=== PATIENT | male | born 1940 | race Caucasian/White ===

== ENCOUNTER 2016-04-21 13:06 | Emergency (ER) | payer OTHER, MEDICARE ==
[~2016-04-21] VITALS: Ht 177.8 cm; Wt 77.1 kg
--- NOTE | ~2016-04-21 | EKG ---
[address] [place] [address] ELECTROCARDIOGRAM REPORT Name: WINDY LIGHT Room #: [facility]#: [id number] Admission: 04/21/16 Attend Phys: Discharge: Date of : 40 Report #: [id number] THIS REPORT FOR: //name// [facility] ED Test Date: 2016-04-21 Test Time: 13:50:26 Pat Name: WINDY LIGHT Department: Room: Gender: Pad Cutter: EVE : 1940 Requested By: Garland Owens Order Number: [id number] MD: Craig Norris Measurements Intervals [place] Rate: 63 P: 83 DC: 146 QRS: 77 QRSD: 93 T: 77 QT: 386 QTc: 396 Interpretive Statements Sinus rhythm No significant abnormality No previous ECG available for comparison Electronically Signed On 04-21-2016 13:57:55 DRAWING INSTRUCTOR by Craig Norris [email or web address] <ELECTRONICALLY SIGNED> By: Craig Norris MD, [facility] 04/21/16 1357 1350 1350 Craig Norris MD, FACC /EPI
--- NOTE | ~2016-04-21 | HC ---
[facility] [place] [address] CONSULTATION Name: WINDY LIGHT Room #: DEP Елена#: [id number] Admission: 04/21/16 Attend Phys: Discharge: 04/21/16 Date of : 40 Report #: [id number] THIS REPORT FOR: //name// CC: Garland Ford MD DATE OF SERVICE: 04/21/2016 REFERRING PHYSICIAN: Dr. Wojciech Cage. REASON FOR REFERRAL: Dyspnea. HISTORY OF PRESENT ILLNESS: The patient is a 76-year-old white male who presents to the Emergency Room with progressive dyspnea and cough. A pulmonary consultation was requested. The patient has smoked most of his life. He has smoked about a pack a day. He has smoked up till two days ago. The patient has noticed increasing dyspnea on exertion for the past several years, much worse more recently. For about 1-2 weeks, he has had trouble with night sweats and chills, and dyspnea. On Saturday, his cough and dyspnea became progressively worse where he was seen in the Emergency Room. He is in fact seen in the Urgent Care who referred him to the Emergency Room. It was recommended that he would be hospitalized, the patient deferred and was dismissed home with antibiotics and corticosteroids along with bronchodilators. He returns today because of worsening dyspnea and cough. The patient had a CT chest performed earlier, which was without any infiltrates. There is some suggestion of bilateral bullous changes. Aside from his dyspnea and cough, he denies any chest pain or productive cough. He has had fever and chills. The patient denies any past pulmonary evaluation, though it was recommended to him in the past and the patient deferred. PAST MEDICAL HISTORY: Remarkable for coronary artery disease, undergoing stent placement in the past, hypertension, hypocholesterolemia, intolerance to Lipitor, Pravachol, Zocor, Livalo, tobacco abuse up until 2 days ago, smoking about a pack a day for most of his life PAST SURGICAL HISTORY: Includes prior back surgery, double herniorrhaphy, appendectomy, carpal tunnel disease, shoulder surgery. [facility] [address] [place] [address] CONSULTATION Name: WINDY LIGHT KB Room #: DEP Елена#: [id number] Admission: 04/21/16 Attend Phys: Discharge: 04/21/16 Date of : 40 Report #: [id number] ALLERGIES: Aleve which causes panic attacks, but he tolerates aspirin, Lipitor, Pravachol, simvastatin, all causes myalgias including Livalo. HOME MEDICATIONS: Include metoprolol, doxazosin, vitamin D3, multivitamins, aspirin 325 mg. He has been using ProAir 2 puffs p.r.n., which helps. FAMILY HISTORY: Notable for myocardial infarction in father who at the age of 58. He has 2 children, one son with coronary artery disease at the age of 49. SOCIAL HISTORY: The patient is . 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 REVIEW OF SYSTEMS: As mentioned above. It is notable for progressive dyspnea on exertion for past several years. Otherwise, 10-point system review negative. PHYSICAL EXAMINATION: GENERAL: He is awake, alert, in mild respiratory distress. VITAL SIGNS: Temperature is 98 degrees Fahrenheit, pulse is 98, respiratory rate is 18, blood pressure is 152/72 mmHg, saturation is 95% on 3 liters of O2. HEENT: Normocephalic, atraumatic. NECK: Supple, without lymphadenopathy or thyromegaly. CHEST: Breath sounds are good bilaterally with mild expiratory wheezes. No rales. CARDIOVASCULAR: Normal S1, S2. There are no murmurs or gallop. There is no JVD. There is no carotid bruit. Pulses are 2+/4+ bilaterally. ABDOMEN: Soft, nontender, no organomegaly or masses felt. EXTREMITIES: There is no edema, cyanosis or clubbing. LABORATORY DATA: CT chest again is clear. Electrolytes are normal, creatinine 1.1. WBC 6400, hemoglobin 13.7, platelets normal. There is no left shift. Arterial blood gas revealed pH 7.44, pCO2 of 30, pO2 87 on 5 liters O2. IMPRESSION: 1. Acute hypoxic respiratory failure in this 76-year-old white male secondary to exacerbation of COPD along with possible upper respiratory tract infection. 2. COPD, severity unknown, but suspect moderate to severe impairment with exacerbation. 3. Tobacco abuse, having quit smoking just 2 days ago. 4. Suspect upper respiratory tract infection, possible viral, bacterial is felt to be less likely given the absence of productive cough. 5. Coronary artery disease. 6. Hypertension. RECOMMENDATIONS: Agree with current medical treatment plans including [facility] [address] [place] [address] CONSULTATION Name: WINDY LIGHT Room #: PRESLEY Christiansen#: [id number] Admission: 04/21/16 Attend Phys: Discharge: 04/21/16 Date of : 40 Report #: [id number] corticosteroids, bronchodilators and broad spectrum antibiotics. DVT and GI prophylaxis will be addressed. The patient will benefit from maintenance bronchodilator therapy. Either Spiriva or combination of anticholinergic along beta agonist will be preferred. In terms of tobacco use, I had a long discussion with the patient regarding the importance of smoke cessation. We also discussed there are treatment options for tobacco cessation including nicotine replacement products. Once stable and improved, the patient will benefit from outpatient followup with pulmonary functions. Thank you for the consultation. <ELECTRONICALLY SIGNED> By: Ravindra Tatum MD 04/25/16 1518 1718 2225 Ravindra Tatum MD /nt
[~2016-04-21 13:06] MED LIST: ARTIFICIAL TEAR15 M1 OPHTHALMIC; ASPIRIN325 PO; ATORVASTATIN CA20 MG PO; B-121000 MCG PO; CARDURA4 MG PO; CELEBREX 200 M200 M1 PO; CENTRUM SILVER1 EAC4 PO; CEPHALEXIN 500500 M2 PO; EFFIENT10 MG PO; IBUPROFEN 200200 M1 PO; MULTIVITAMINS1 EAC7; TOPROL XL50 MG PO; VITAMIN D31000 UNI2 PO; ZANAFLEX4 MG PO
[2016-04-21 14:03] LABS: ABSOLUTE NEUTROPHILS 2.8 thou/uL (1.4-8.2); PLATELET COUNT 157 thou/uL (150-400)
[2016-04-21 14:09] LABS: BASOPHILS 0.2 % (0.0-2.0); HEMATOCRIT 40.4 % (42.0-52.0); HEMOGLOBIN 13.7 gm/dL (14.0-18.0); LYMPHOCYTES 13.7 % (24.0-44.0); MCH 30.8 pg (26.0-34.0); MCV 90.5 fL (80.0-100.0); POLYS 74.1 % (36.0-66.0); RBC 4.46 mil/uL (4.50-6.00); RDW 13.9 % (10.5-14.5); WBC 3.7 thou/uL (4.0-11.0)
[2016-04-21 14:10] LABS: ANION GAP 9 mmol/L (7-16); BUN 21 mg/dL (7-18); CHLORIDE 101 mmol/L (98-107); CO2 27 mmol/L (21-32); CREATININE 1.4 mg/dL (0.6-1.3); GLUCOSE 112 mg/dL (70-99); POTASSIUM 4.3 mmol/L (3.5-5.1); SODIUM 137 mmol/L (136-145)
[2016-04-21 14:17] LABS: MANUAL DIFF NO
[2016-04-21 14:18] LABS: ALBUMIN 3.3 g/dL (3.4-5.0); ALKALINE PHOSPHATASE 42 U/L (46-116); SGOT 28 U/L (15-37); SGPT 31 U/L (30-65); TOTAL BILIRUBIN 0.3 mg/dL (<0.1-1.0); TOTAL PROTEIN 7.1 g/dL (6.4-8.2); TROPONIN-I < 0.04 ng/mL (<0.04-0.07)
[2016-04-21 14:53] LABS: URINE BILIRUBIN NEGATIVE (Negative); URINE BLOOD TRACE (Negative); URINE COLOR YELLOW; URINE GLUCOSE-RANDOM* NEGATIVE (Negative); URINE KETONES NEGATIVE (Negative); URINE NITRITE NEGATIVE (Negative); URINE PROTEIN (DIPSTICK) NEGATIVE (Negative); URINE UROBILINOGEN 0.2 E.U./dl (0.2-1.0)
[2016-04-21] MEDS ORDERED: VENTOLIN HFA 1818 GM INH (15:07)
[2016-04-21] MEDS ORDERED: PREDNISONE 20 M20 MG PO (15:07)
[2016-04-21] MEDS ORDERED: LEVAQUIN 500 M500 M2 PO (15:07)
[2016-04-23] MEDS ORDERED: ASPIRIN325 PO (12:02)
[2016-04-26] MEDS ORDERED: LORAZEPAM 0.50.5 MG PO (17:05)
[2016-04-26] MEDS ORDERED: NICOTINE TRANSD14 M1 TRANSDERM (17:05)
[2016-04-26] MEDS ORDERED: MUCINEX TA600 MG/TA2 PO (17:05)
[2016-04-26] MEDS ORDERED: DUONEB 2.5-0.5 M3 ML INH (17:05)
[2016-04-26] MEDS ORDERED: NEBULIZER INH (17:10)
== END 2016-04-21 15:53 | disposition home or self-care (01) ==
LOC: ER 13:06
PROVIDERS: Physician Assistant
DX: J44.1 Chronic obstructive pulmonary disease with (acute) exacerbation (principal); J20.9 Acute bronchitis, unspecified; Z71.6 Tobacco abuse counseling; F17.210 Nicotine dependence, cigarettes, uncomplicated; I10 Essential (primary) hypertension; Z98.890 Other specified postprocedural states; Z88.6 Allergy status to analgesic agent; F10.99 Alcohol use, unspecified with unspecified alcohol-induced disorder

== ENCOUNTER → 2017-07-08 | Outpatient (CLI) | payer OTHER, MEDICARE ==
[~2017-07-08] MED LIST changes: +DUONEB 2.5-0.5 M3 ML INH; +LEVAQUIN 500 M500 M2 PO; +LORAZEPAM 0.50.5 MG PO; +MUCINEX TA600 MG/TA2 PO; +NEBULIZER INH; +NICOTINE TRANSD14 M1 TRANSDERM; +PREDNISONE 20 M20 MG PO; +VENTOLIN HFA 1818 GM INH
== END ==
LOC: NUC 07:27
DX: I25.10 Atherosclerotic heart disease of native coronary artery without angina pectoris (principal); I10 Essential (primary) hypertension; E78.5 Hyperlipidemia, unspecified; Z87.891 Personal history of nicotine dependence

== ENCOUNTER 2017-07-22 06:32 | Outpatient (CLI) | payer OTHER, MEDICARE ==
[~2017-07-22] VITALS: Ht 177.8 cm; Wt 70.8 kg
--- NOTE | ~2017-07-22 | D ---
[facility] [place] [address] DISCHARGE SUMMARY Name: WINDY LIGHT Room #: DEP MICHAELA Елена#: [id number] Admission: 07/22/17 Attend Phys: Scottie Greene MD Discharge: 07/23/17 Date of : 40 Report #: [id number] THIS REPORT FOR: //name// CC: Scottie Cage DATE OF SERVICE: 07/23/2017 FINAL DIAGNOSES: 1. Unstable angina, status post coronary angioplasty. 2. Prior history of coronary artery disease. 3. Chronic obstructive pulmonary disease. 4. Tobacco use. 5. Hypertension. 6. Hypercholesterolemia. HOSPITAL COURSE: Please see the original H and P for full details. The patient had increasing dyspnea with mild levels of physical exertion. He also had occasional episodes of chest discomfort. The nuclear stress test was positive for ischemia. Please see the cardiac cath report for full details. The previously placed stents in the LAD and diagonal artery were widely patent. There was a new stenosis involving a moderate size first obtuse marginal artery. Angioplasty was performed with placement of a drug-eluting stent. He has remained clinically stable overnight. FINAL DISPOSITION: Plavix 75 mg daily, Lipitor 40 mg daily, doxazosin, metoprolol XL 50 mg daily, albuterol inhaler, aspirin, and vitamins. <ELECTRONICALLY SIGNED> By: Scottie Greene MD 07/24/17 0826 0850 1013 Scottie Greene MD /eduardo
--- NOTE | ~2017-07-22 | EKG ---
[address] [address] ELECTROCARDIOGRAM REPORT Name: SARA LIGHTMAUREEN Clayton Room #: 211-[facility]#: [id number] Admission: 07/22/17 Attend Phys: Scottie Greene MD Discharge: Date of : 40 Report #: [id number] THIS REPORT FOR: //name// [facility] Test Date: 2017-07-23 Test Time: 06:08:53 Pat Name: WINDY LIGHT Department: Room: 211 Gender: M Lan Manager: : 1940 Requested By: Scottie Greene Order Number: [id number] MD: Craig Norris Measurements Intervals [place] Rate: 69 P: 79 [place]: 163 QRS: 57 QRSD: 91 T: 72 QT: 367 QTc: 393 Interpretive Statements Sinus rhythm Anteroseptal infarct, age indeterminate Compared to ECG 07/22/2017 07:03:59 Septal Q waves are more prominent Electronically Signed On 07-23-2017 9:01:51 CDT by Craig Norris [email or web address] <ELECTRONICALLY SIGNED> By: Craig Norris MD, [facility] 05/04/11 [phone] 7 Craig Norris MD, [facility] /EPI
--- NOTE | ~2017-07-22 | EKG ---
[address] [address] ELECTROCARDIOGRAM REPORT Name: SARA LIGHTMAUREEN Clayton Room #: 211-P [facility]#: [id number] Admission: 07/22/17 Attend Phys: Scottie Greene MD Discharge: Date of : 40 Report #: [id number] THIS REPORT FOR: //name// [facility] Test Date: 2017-07-22 Test Time: 10:00:49 Pat Name: WINDY LIGHT Department: Room: Gender: M Fish And Game Warden: Bridgett BLAIR : 1940 Requested By: Scottie Greene Order Number: [id number] MD: Craig Norris Measurements Intervals [place] Rate: 60 P: 79 SD: 170 QRS: 66 QRSD: 94 T: 73 QT: 410 QTc: 410 Interpretive Statements Sinus rhythm Normal tracing Compared to ECG 07/22/2017 07:03:59 No significant changes Electronically Signed On 07-23-2017 8:46:44 CDT by Craig Norris [email or web address] <ELECTRONICALLY SIGNED> By: Craig Norrsi MD, [facility] 07/23/17 [address] [facility] Craig Norris MD, FACC /EPI
--- NOTE | ~2017-07-22 | CATHLAB ---
[address] [address] [place] [address] INVASIVE PROCEDURE REPORT Name: WINDY LIGHT Room #: 211-P [facility]#: [id number] Admission: 07/22/17 Attend Phys: Scottie Greene MD Discharge: Date of : 40 Date of Service: 07/22/17 1452 Report #: [id number] THIS REPORT FOR: //name// APPROVED REPORT Study performed: 07/22/2017 07:46:42 Patient Details Patient Status: Out-Patient Room #: The patient is a 77 year-old male Event Personnel Scottie Greene Director Biomedical Engineering, Andrew Salazar RN, Santos, Yobani Reyes David Monitor Procedures Performed Left Heart Cath w/or w/o Coronaries [id number] [facility] INDER Place w/wo Plasty Single CIRC [id number] Indication Dyspnea, Positive stress test, Chest pain Risk Factors Chronic Lung DiseaseHypercholesterolemia, Coronary Artery DiseaseHypertension, Tobacco History () Procedure Narrative The Right Groin^ was infiltrated with 1% Lidocaine subcutaneous anesthesia. A PINNACLE 6FR Sheath #[id number] sheath was inserted into the RFA^. Coronary angiography was performed using coronary diagnostic catheters. The right coronary system was accessed and visualized with a 4FR AR MOD #[id number] catheter. The left coronary system was accessed and visualized with a JL4 catheter. The left ventricle was accessed and visualized with a PIGTAIL catheter. Left ventricular/Aortic Valve gradient assessed via catheter pullback. Left ventriculogram was performed in 30 degree projection. Closure device was deployed with a 6 Fr MYNXGRIP 6/7F #[id number]. The patient tolerated the procedure well and there were no complications associated with the procedure. Intraoperative Conscious Sedation Sedation start time: 8.26 Case end Time: 9.10 Fentanyl 50 mcg Versed 1.5 mg [facility] [place] [address] INVASIVE PROCEDURE REPORT Name: WINDY LIGHT Room #: 211-P [facility]#: [id number] Admission: 07/22/17 Attend Phys: Scottei Greene MD Discharge: Date of : 40 Date of Service: 07/22/17 1452 Report #: [id number] Fluoro Time: 14.13 minutes Dose: DAP 8567 cGycm2 1091 mGy Contrast Type and Amount: Omnipaque 245 ml Coronary Angiography The patient's coronary anatomy is right dominant. Diagnostic Cath Left Main Patent vessel, with no flow-limiting lesions. LAD There is a patent stent in the mid LAD, with minimal restenosis. After the stent, there is a mild to moderate stenosis, 40%. Diagonal 1 There is a stent in the proximal segment, patent with minimal restenosis. Circumflex Supplies one moderate size OM vessel. OM1 There is a severe stenosis in the proximal segment, 80%. Right Coronary Dominant vessel, with no flow-limiting lesions. 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 R PDA Patent vessel, with no flow-limiting lesions. RPLV There are 3 branches, patent with no flow-limiting lesions. Left Ventriculography The left ventricle is normal in size with normal contractility. The left ventricular ejection fraction is estimated to be 55-60%. Hemodynamics The aortic pressure is 135/74 mmHg with a mean of 91 mmHg. The left ventricular pressure is 131/5 mmHg with a mean of mmHg. The left ventricular end diastolic pressure is 19 mmHg. There was no gradient across the aortic valve upon pullback. Pullback from the left ventricle to the aorta revealed no gradient across the aortic valve. PCI Technique Lesion Anticoagulation was achieved with Angiomax. Patient was preloaded with Plavix. Percutaneous coronary intervention was performed on the proximal obtuse marginal artery #1. The lesion stenosis prior to intervention was 80% with RA 3 flow. A XB3.5 Guide Catheter was used to engage the ostium. A Luge Wire .014 x 182CM #[id number] Interventional Guidewire was used to cross the lesion. BALLOON DILATION A Balloon catheter Euphora RX 2.25 x 6 #[id number] was inserted and inflated up to 6.00atm for 9seconds. Additional Inflation: 8.00atm for 15seconds. Additional Inflation: 8.00atm for 14seconds. [facility] [address] [place] [address] INVASIVE PROCEDURE REPORT Name: WINDY LIGHT Room #: 211-P [facility]#: [id number] Admission: 07/22/17 Attend Phys: Scottie Greene MD Discharge: Date of : 40 Date of Service: 07/22/17 1452 Report #: [id number] STENT DEPLOYMENT A drug-eluting stent RESOLUTE RX 2.5 X 12 #[id number] was inserted and inflated up to 9atm for 21seconds. POST STENT DEPLOYMENT BALLOON DILATION A Balloon catheter Euphora NC RX 2.75 x 8 #[id number] was inserted and inflated up to 15.00atm for 12seconds. Final angiography reveals 0 % stenosis with RA 3 flow. Conclusion 1. Successful insertion of a drug-eluting stent into the severe proximal stenosis in OM1. 2. Patent stents in the mid LAD and proximal first diagonal artery. 3. 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 4. Normal LV systolic function. 5. Recommend dual antiplatelet therapy. <ELECTRONICALLY SIGNED> By: Scottie Greene MD 07/22/17 1452 145 51 Scottie Greene MD /INF
--- NOTE | ~2017-07-22 | EKG ---
[address] [address] ELECTROCARDIOGRAM REPORT Name: SUDHAKARBIANCAWINDY Clayton Room #: [facility]#: [id number] Admission: 07/22/17 Attend Phys: Scottie Greene MD Discharge: Date of : 40 Report #: [id number] THIS REPORT FOR: //name// [facility] Test Date: 2017-07-22 Test Time: 07:03:59 Pat Name: WINDY LIGHT Department: Room: Gender: Public Speaking Coach: Bridgett BLAIR : 1940 Requested By: Scottie Greene Order Number: [id number] MD: Craig Norris Measurements Intervals [place] Rate: 62 P: 79 [place]: 167 QRS: 65 QRSD: 95 T: 64 QT: 383 QTc: 389 Interpretive Statements Sinus rhythm No significant abnormality Compared to ECG 04/21/2016 13:50:26 No significant changes Electronically Signed On 07-22-2017 9:22:55 CDT by Craig Norris [email or web address] <ELECTRONICALLY SIGNED> By: Craig Norris MD, [facility] 07/22/17 0922 D: 04702 2 Craig Norris MD, [facility] /EPI
[2017-07-22 07:24] LABS: HEMATOCRIT 37.8 % (42.0-52.0); HEMOGLOBIN 12.8 gm/dL (14.0-18.0); MCHC 33.9 g/dL (28.0-37.0); MCV 91.4 fL (80.0-100.0); RBC 4.14 mil/uL (4.50-6.00); RDW 13.7 % (10.5-14.5)
[2017-07-22 07:32] LABS: CALCIUM 9.5 mg/dL (8.5-10.1); CREATININE 1.1 mg/dL (0.7-1.3); POTASSIUM 4.1 mmol/L (3.5-5.1)
[2017-07-22 07:35] VITALS: BP 122/79
[2017-07-22] MEDS ORDERED: CO Q-10100 M1 PO (07:48)
[2017-07-22] MEDS ORDERED: VITAMIN D3400 UNIT PO (07:48)
[2017-07-22] MEDS ORDERED: FOLIC ACID 1 MG1 MG PO (07:49)
[2017-07-22] MEDS ORDERED: THERA M PLUS T1 EAC2 PO (07:50)
[2017-07-22] MEDS ORDERED: PYRIDOXINE HCL50 MG PO (07:51)
[2017-07-22 09:45] VITALS: BP 142/91
[2017-07-22 18:20] VITALS: BP 135/80
[2017-07-22 19:55] VITALS: BP 132/71
[2017-07-22 23:40] VITALS: BP 138/77
[2017-07-23 03:31] LABS: CALCIUM 8.5 mg/dL (8.5-10.1); TOTAL BILIRUBIN 0.4 mg/dL (<0.1-1.0); TOTAL PROTEIN 6.3 g/dL (6.4-8.2); TROPONIN-I 0.06 ng/mL (<0.06)
[2017-07-23 04:29] VITALS: BP 120/73
[2017-07-23 04:30] LABS: HEMATOCRIT 37.7 % (42.0-52.0); HEMOGLOBIN 12.7 gm/dL (14.0-18.0); MCH 30.6 pg (26.0-34.0); MCHC 33.6 g/dL (28.0-37.0); MCV 91.1 fL (80.0-100.0); RBC 4.14 mil/uL (4.50-6.00); RDW 13.9 % (10.5-14.5); WBC 6.9 thou/uL (4.0-11.0)
[2017-07-23 08:15] VITALS: BP 135/88
[2017-07-23] MEDS ORDERED: CLOPIDOGREL75 MG PO (08:34)
[2017-07-23] MEDS ORDERED: ATORVASTATIN CA40 MG PO (08:35)
[2017-07-23 09:02] VITALS: BP 135/88
[2017-07-23 09:08] VITALS: BP 135/88
[2017-07-23 12:03] VITALS: BP 96/59
== END 2017-07-23 13:59 | disposition home or self-care (01) ==
LOC: CATH 06:32 → 2N 09:42 → CATH 07-23 13:59
PROVIDERS: Internal Medicine Cardiovascular Disease
DX: I25.10 Atherosclerotic heart disease of native coronary artery without angina pectoris (principal); I10 Essential (primary) hypertension; I25.2 Old myocardial infarction; E78.00 Pure hypercholesterolemia, unspecified; J44.9 Chronic obstructive pulmonary disease, unspecified; K21.9 Gastro-esophageal reflux disease without esophagitis; F17.210 Nicotine dependence, cigarettes, uncomplicated; Z95.5 Presence of coronary angioplasty implant and graft; Z79.82 Long term (current) use of aspirin; Z79.899 Other long term (current) drug therapy; Z88.8 Allergy status to other drugs, medicaments and biological substances; Z90.49 Acquired absence of other specified parts of digestive tract; Z98.890 Other specified postprocedural states; Z82.49 Family history of ischemic heart disease and other diseases of the circulatory system
CPT/HCPCS: 10081

== ENCOUNTER → 2018-10-28 | Outpatient (CLI) | payer OTHER, MEDICARE ==
[~2018-10-28] MED LIST changes: +ATORVASTATIN CA40 MG PO; +CLOPIDOGREL75 MG PO; +CO Q-10100 M1 PO; +FOLIC ACID 1 MG1 MG PO; +PYRIDOXINE HCL50 MG PO; +THERA M PLUS T1 EAC2 PO; +VITAMIN D3400 UNIT PO
== END ==
LOC: RAD 10:26
DX: J98.4 Other disorders of lung (principal); J44.9 Chronic obstructive pulmonary disease, unspecified; I70.0 Atherosclerosis of aorta

== ENCOUNTER → 2019-02-23 | Outpatient (CLI) | payer OTHER, MEDICARE ==
--- NOTE | 2019-02-23 11:26 | 2DMMODE ---
[facility] [place] [address] 2 D/M-MODE ECHOCARDIOGRAM Name: WINDY LIGHT Room #: [facility]#: [id number] Admission: 02/23/19 Attend Phys: Scottie Greene MD Discharge: Date of : 40 Report #: [id number] THIS REPORT FOR: //name// APPROVED REPORT Study performed: 02/23/2019 10:42:35 EXAM: Comprehensive 2D, Doppler, and color-flow Echocardiogram Patient Location: Echo lab Status: routine BSA: 1.84 HR: 82 bpm BP: 158/82 mmHg Rhythm: NSR Other Information Study Quality: Adequate Technically limited study due to lung disease. Indications CAD Hypertension/HDD TALAMANTES 2D Dimensions RVDd: 34.58 mm IVSd: 11.11 (7-11mm) LVOT Diam: 22.32 (18-24mm) LVDd: 42.09 mm PWd: 10.91 (7-11mm) Ascending Ao: 39.35 (22-36mm) LVDs: 31.28 (25-40mm) Aortic Root: 37.66 mm IVC: 11.00 mm Volumes Left Atrial Volume (Systole) Single Plane 4CH: 23.54 mL Single Plane 2CH: 36.51 mL LA ESV Index: 18.00 mL/m2 Aortic Valve AoV Peak Smith.: 1.07 m/s AO Peak Gr.: 4.54 mmHg LVOT Max P.80 mmHg LVOT Max V: 0.84 m/s JOHN Vmax: 3.07 cm2 [facility] [address] [place] [address] 2 D/M-MODE ECHOCARDIOGRAM Name: WINDY LIGHT Room #: [facility]#: [id number] Admission: 02/23/19 Attend Phys: Scottie Greene MD Discharge: Date of : 40 Report #: [id number] Mitral Valve E/A Ratio: 0.5 MV Decel. Time: 231.63 ms MV E Max Smith.: 0.49 m/s MV A Smith.: 1.00 m/s MV PHT: 67.17 ms IVRT: 145.33 ms Pulmonary Valve PV Peak Smith.: 0.80 m/s PV Peak Gr.: 2.57 mmHg Pulmonary Vein P Vein S: 0.47 m/s P Vein A: 0.24 m/s P Vein D: 0.30 m/s P Vein A Dur.: 148.8 msec P Vein S/D Ratio: 1.57 Tricuspid Valve TR Peak Smith.: 2.61 m/s RAP Estimate: 5.00 mmHg TR Peak Gr.: 27.27 mmHg PA Pressure: 32.00 mmHg Left Ventricle The left ventricle is normal size. There is normal LV segmental wall motion. Borderline concentric left ventricular hypertrophy. The left ventricular systolic function is normal. The left ventricular ejection fraction is within the normal range. LVEF is 55-60%. Mild diastolic dysfunction is present (impaired relaxation pattern). Right Ventricle The right ventricle is normal size. The right ventricular systolic function is normal. Atria The left atrium size is normal. The right atrium size is normal. Aortic Valve Aortic valve leaflets are mildly thickened. No aortic regurgitation is present. There is no aortic valvular stenosis. Mitral Valve Mitral valve leaflets are mildly thickened. Mild mitral regurgitation. No evidence of mitral valve stenosis. Tricuspid Valve [facility] [address] [place] [address] 2 D/M-MODE ECHOCARDIOGRAM Name: SUDHAKARBIANCAWINDY Room #: [facility]#: [id number] Admission: 02/23/19 Attend Phys: Scottie Greene MD Discharge: Date of : 40 Report #: [id number] The tricuspid valve is normal in structure. Mild tricuspid regurgitation. PAP is estimated at 32 mmHg. Pulmonic Valve The pulmonary valve is normal in structure. Mild pulmonic regurgitation. Great Vessels Aortic root is mildly dilated at 3.8 cm. The ascending aorta is mildly dilated at 3.9 cm. Descending aorta is normal in caliber. IVC is normal in size and collapses >50% with inspiration. Pericardium There is no pericardial effusion. <Conclusion> The left ventricle is normal size. The left ventricular systolic function is normal. Mild diastolic dysfunction is present (impaired relaxation pattern). The right ventricle is normal size. The left atrium size is normal. Aortic valve leaflets are mildly thickened. Mild mitral regurgitation. Mild tricuspid regurgitation. PAP is estimated at 32 mmHg. <ELECTRONICALLY SIGNED> By: Scottie Greene MD 02/23/19 1125 1125 1125 Scottie Greene MD /INF
== END ==
LOC: CV 10:20
DX: I08.8 Other rheumatic multiple valve diseases (principal); I25.10 Atherosclerotic heart disease of native coronary artery without angina pectoris

== ENCOUNTER → 2019-08-27 | Outpatient (CLI) | payer OTHER, MEDICARE | LOC: SJCVCIMAG 09:32 | PROVIDERS: ATTEND Internal Medicine Cardiovascular Disease | DX: I25.10 Atherosclerotic heart disease of native coronary artery without angina pectoris (principal); I49.3 Ventricular premature depolarization; R00.0 Tachycardia, unspecified; I10 Essential (primary) hypertension; E78.00 Pure hypercholesterolemia, unspecified; J44.9 Chronic obstructive pulmonary disease, unspecified; K21.9 Gastro-esophageal reflux disease without esophagitis; F17.200 Nicotine dependence, unspecified, uncomplicated; Z90.49 Acquired absence of other specified parts of digestive tract; Z79.899 Other long term (current) drug therapy ==

== ENCOUNTER → 2019-09-08 | Outpatient (CLI) | payer OTHER, MEDICARE | LOC: RAD 13:16 | PROVIDERS: ATTEND Internal Medicine Pulmonary Disease | DX: J44.9 Chronic obstructive pulmonary disease, unspecified (principal) ==

== ENCOUNTER → 2020-02-08 | Outpatient (CLI) | payer OTHER, MEDICARE | LOC: RAD 11:50 | PROVIDERS: ATTEND Pediatrics | DX: J43.9 Emphysema, unspecified (principal); J84.10 Pulmonary fibrosis, unspecified; I70.0 Atherosclerosis of aorta; I25.10 Atherosclerotic heart disease of native coronary artery without angina pectoris; K76.89 Other specified diseases of liver; M25.78 Osteophyte, vertebrae; J98.4 Other disorders of lung ==

== ENCOUNTER → 2020-02-25 | Outpatient (CLI) | payer OTHER, MEDICARE | LOC: SJCVC 13:00 | PROVIDERS: ATTEND Internal Medicine Cardiovascular Disease | DX: R94.31 Abnormal electrocardiogram [ECG] [EKG] (principal); I25.10 Atherosclerotic heart disease of native coronary artery without angina pectoris; R06.00 Dyspnea, unspecified; I10 Essential (primary) hypertension; E78.00 Pure hypercholesterolemia, unspecified; J44.9 Chronic obstructive pulmonary disease, unspecified; K21.9 Gastro-esophageal reflux disease without esophagitis; G47.33 Obstructive sleep apnea (adult) (pediatric); F17.210 Nicotine dependence, cigarettes, uncomplicated; Z72.89 Other problems related to lifestyle ==

== ENCOUNTER → 2020-08-12 | Outpatient (CLI) | payer OTHER, MEDICARE ==
[~2020-08-12] MED LIST changes: +RAYOS5 MG PO
== END ==
LOC: SJCVC 11:26
PROVIDERS: ATTEND Internal Medicine Cardiovascular Disease
DX: I25.10 Atherosclerotic heart disease of native coronary artery without angina pectoris (principal); E78.00 Pure hypercholesterolemia, unspecified; I10 Essential (primary) hypertension; J44.9 Chronic obstructive pulmonary disease, unspecified; K21.9 Gastro-esophageal reflux disease without esophagitis; G47.33 Obstructive sleep apnea (adult) (pediatric); F41.9 Anxiety disorder, unspecified; F17.200 Nicotine dependence, unspecified, uncomplicated; Z79.82 Long term (current) use of aspirin; Z79.899 Other long term (current) drug therapy; Z72.89 Other problems related to lifestyle; Z88.8 Allergy status to other drugs, medicaments and biological substances

== ENCOUNTER → 2020-08-17 | Outpatient (CLI) | payer OTHER, MEDICARE ==
[~2020-08-17] VITALS: Ht 177.8 cm; Wt 72.6 kg
[2020-08-17 08:53] VITALS: BP 140/98
--- NOTE | 2020-08-17 12:08 | CATHLAB ---
[facility] [place] [address] INVASIVE PROCEDURE REPORT Name: SUDHAKARBIANCAWINDY Room #: REG MICHAELA YuJacobo#: [id number] Admission: 08/17/20 Attend Phys: Scottie Greene MD Discharge: Date of : 40 Report #: [id number] THIS REPORT FOR: cc: Wojciech Cage MD, Mark A. MD Park, Jin S. MD ~ APPROVED REPORT Study performed: 08/17/2020 09:20:11 Patient Details Patient Status: Out-Patient Room #: The patient is a 80 year-old male Event Personnel Scottie Greene Facsimile Operator, Crista Fernandes RTR Monitor, Estrella Jacinto RN RN, Karlee Levy RT(R)() Scrub Procedures Performed Art Access - R femoral artery* Left Heart Cath w/or w/o Coronaries [id number] [facility] Hemostasis with Manual pressure 99991 Initial Mod Sed Same Phys/QHP Gr5y [id number] Mod Sed Same Phys/QHP Ea [id number] Indication Dyspnea, Positive stress test Risk Factors Chronic Lung DiseaseHypercholesterolemiaPhysical Activity, Coronary Artery DiseaseHypertension, Tobacco History () Previous Procedures/Diagnoses Previous PCI, Previous SC Procedure Narrative The Right Groin^ was infiltrated with 1% Lidocaine subcutaneous anesthesia. A PINNACLE 4FR Sheath #[id number] sheath was inserted into the RFA^. Coronary angiography was performed using coronary diagnostic catheters. The right coronary system was accessed and visualized with a JR4 catheter. The left coronary system was accessed and visualized with a JL5 catheter. The left ventricle was accessed and visualized with a ANGLED PIGTAIL catheter. Left ventriculogram was performed in 30 degree projection. Hemostasis was obtained with manual pressure following sheath removal without any complications. [facility] [address] [place] [address] INVASIVE PROCEDURE REPORT Name: WINDY LIGHT Room #: REG [facility]#: [id number] Admission: 08/17/20 Attend Phys: Scottie Greene MD Discharge: Date of : 40 Report #: [id number] The patient tolerated the procedure well and there were no complications associated with the procedure. There was no hematoma. Intraoperative Conscious Sedation Sedation start time: 9:36 Case end Time: 10:09 Fentanyl 25 mcg Versed 1 mg Fluoro Time: 4.09 minutes Dose: DAP 2837.10 cGycm2 295 mGy Contrast Type and Amount: Omnipaque 84 ml Coronary Angiography The patient's coronary anatomy is right dominant. Diagnostic Cath Left Main The left main artery is a large-caliber vessel, patent with no flow-limiting lesions. LAD The LAD is a moderate-sized caliber vessel, traverses the anterior wall and wraps around the apex. There is a stent in the midsegment, patent with mild restenosis. Diagonal 1 There is a stent in the proximal segment, patent with mild restenosis. Circumflex There is mild disease in the proximal segment. OM1 There is a patent stent in the proximal segment with mild restenosis. Right Coronary The RCA is a dominant vessel, with no flow-limiting lesions. The mid segment appears to be ectatic. R PDA This is a moderate-sized caliber vessel, patent with no flow-limiting lesions. RPLV There are several RPL branches, that supply the inferolateral wall. These vessels are patent, with no flow-limiting lesions. Left Ventriculography The left ventricle is normal in size with normal contractility. The left ventricular ejection fraction is estimated to be 55-60%. Hemodynamics The aortic pressure is 138/76 mmHg with a mean of 102 mmHg. The left ventricular pressure is 130/5 mmHg with a mean of mmHg. The left ventricular end diastolic pressure is 22 mmHg. Conclusion 1. There are patent stents in the LAD and first diagonal artery, [facility] [address] [place] [address] INVASIVE PROCEDURE REPORT Name: WINDY LIGHT Room #: REG [facility]#: [id number] Admission: 08/17/20 Attend Phys: Scottie Greene MD Discharge: Date of : 40 Report #: [id number] with mild restenosis. 2. There is a patent stent in the first obtuse marginal artery, with mild restenosis. 3. The RCA is a dominant vessel, with no evidence for obstruction. 4. There is normal LV systolic function. 5. Recommend risk factor management. <ELECTRONICALLY SIGNED> By: Scottie Greene MD 08/17/208 07 07 Scottie Greene MD /INF
== END | disposition home or self-care (01) ==
LOC: CATH 07:04
PROVIDERS: ATTEND Internal Medicine Cardiovascular Disease
DX: R94.39 Abnormal result of other cardiovascular function study (principal); I25.10 Atherosclerotic heart disease of native coronary artery without angina pectoris; T82.855A Stenosis of coronary artery stent, initial encounter; I10 Essential (primary) hypertension; E78.00 Pure hypercholesterolemia, unspecified; J44.9 Chronic obstructive pulmonary disease, unspecified; K21.9 Gastro-esophageal reflux disease without esophagitis; F17.210 Nicotine dependence, cigarettes, uncomplicated; Z98.890 Other specified postprocedural states; Z79.899 Other long term (current) drug therapy; Z82.49 Family history of ischemic heart disease and other diseases of the circulatory system; Y83.8 Other surgical procedures as the cause of abnormal reaction of the patient, or of later complication, without mention of misadventure at the time of the procedure

== ENCOUNTER → 2020-09-07 | Outpatient (CLI) | payer OTHER, MEDICARE | LOC: SJCVC 14:33 | PROVIDERS: ATTEND Internal Medicine Cardiovascular Disease | DX: I10 Essential (primary) hypertension (principal); I25.10 Atherosclerotic heart disease of native coronary artery without angina pectoris; E78.00 Pure hypercholesterolemia, unspecified; I25.2 Old myocardial infarction; J44.9 Chronic obstructive pulmonary disease, unspecified; K21.9 Gastro-esophageal reflux disease without esophagitis; N40.0 Benign prostatic hyperplasia without lower urinary tract symptoms; F17.200 Nicotine dependence, unspecified, uncomplicated; Z95.5 Presence of coronary angioplasty implant and graft; Z90.49 Acquired absence of other specified parts of digestive tract; Z98.890 Other specified postprocedural states; Z88.8 Allergy status to other drugs, medicaments and biological substances; Z79.82 Long term (current) use of aspirin; Z79.899 Other long term (current) drug therapy; Z82.49 Family history of ischemic heart disease and other diseases of the circulatory system ==

== ENCOUNTER → 2020-12-29 | Outpatient (CLI) | payer OTHER, MEDICARE | LOC: RAD 12:06 | PROVIDERS: ATTEND Pediatrics | DX: R91.8 Other nonspecific abnormal finding of lung field (principal) ==

== ENCOUNTER → 2021-03-07 | Outpatient (CLI) | payer OTHER, MEDICARE | LOC: SJCVCIMAG 12:52 | PROVIDERS: ATTEND Internal Medicine Cardiovascular Disease | DX: I08.1 Rheumatic disorders of both mitral and tricuspid valves (principal); I25.10 Atherosclerotic heart disease of native coronary artery without angina pectoris; E78.00 Pure hypercholesterolemia, unspecified; I10 Essential (primary) hypertension; J44.9 Chronic obstructive pulmonary disease, unspecified; F17.200 Nicotine dependence, unspecified, uncomplicated; F41.9 Anxiety disorder, unspecified; K21.9 Gastro-esophageal reflux disease without esophagitis; G47.33 Obstructive sleep apnea (adult) (pediatric); Z88.8 Allergy status to other drugs, medicaments and biological substances; Z72.89 Other problems related to lifestyle; Z95.818 Presence of other cardiac implants and grafts; Z82.49 Family history of ischemic heart disease and other diseases of the circulatory system; Z79.82 Long term (current) use of aspirin; Z79.899 Other long term (current) drug therapy ==